=== PATIENT | female | born 1995 | race Two or more races ===

== ENCOUNTER 2021-09-25 15:06 | Observation (INO) | payer SELFPAY ==
[~2021-09-25] VITALS: Ht 159.5 cm; Wt 67.4 kg
--- NOTE | 2021-09-25 17:11 | PHYS DOC ---
Past Medical History Past Medical History: No Pertinent History (LAM VILLALPANDO APRN) Past Surgical History: No Surgical History (LAM VILLALPANDO APRN) Smoking Status: Never Smoker Alcohol Use: None Drug Use: None (LAM VILLALPANDO APRN) General Adult EDM: Chief Complaint: VAGINAL BLEEDING HPI: HPI: Patient is a 25-year-old female that presents today with vaginal bleeding with a positive test. Patient states that over the last 2 weeks she has had vaginal bleeding with a positive test at home. She states that she was seen in the PROMOTIONAL MARKETING AGENT's office on Sunday had some blood drawn and continues to wait for results from that blood test. But she states today that her pain has gotten worse and she is here for evaluation. She states that over the last 24 hours she is going through 3 pads, and has not had any clot passage. Patient is a 2 para 1. Patient is Indonesian-speaking only and interpretive services was used for this HPI. (LAM VILLALPANDO APRN) Review of Systems: Review of Systems: Constitutional: Denies fever or chills. [] Eyes: Denies change in visual acuity. [] HENT: Denies nasal congestion or sore throat. [] Respiratory: Denies cough or shortness of breath. [] Cardiovascular: Denies chest pain or edema. [] GI: Denies abdominal pain, nausea, vomiting, bloody stools or diarrhea. [] BRIDGE CRANE OPERATOR: Lower abdominal cramping, and vaginal bleeding Musculoskeletal: Denies back pain or joint pain. [] Integument: Denies rash. [] Neurologic: Denies headache, focal weakness or sensory changes. [] Endocrine: Denies polyuria or polydipsia. [] Lymphatic: Denies swollen glands. [] Psychiatric: Denies depression or anxiety. [] (LAM VILLALPANDO APRN) Heart Score: C/O Chest Pain: N/A Risk Factors: Risk Factors: DM, Current or recent (<one month) smoker, HTN, HLP, family history of CAD, obesity. Risk Scores: Score 0 - 3: 2.5% MACE over next 6 weeks - Discharge Home Score 4 - 6: 20.3% MACE over next 6 weeks - Admit for Clinical Observation Score 7 - 10: 72.7% MACE over next 6 weeks - Early Invasive Strategies (LAM VILLALPANDO CHAIRMAN AND CEO) Physical Exam: PE: Constitutional: Well developed, well nourished, no acute distress, non-toxic appearance. [] HENT: Normocephalic, atraumatic, bilateral external ears normal, oropharynx moist, no oral exudates, nose normal. [] Eyes: PERRLA, EOMI, conjunctiva normal, no discharge. [] Neck: Normal range of motion, no tenderness, supple, no stridor. [] Cardiovascular:Heart rate regular rhythm, no murmur [] Lungs & Thorax: Bilateral breath sounds clear to auscultation [] Abdomen: Bowel sounds normal, soft, no tenderness, no masses, no pulsatile masses. [] Skin: Warm, dry, no erythema, no rash. [] Back: No tenderness, no CVA tenderness. [] Extremities: No tenderness, no cyanosis, no clubbing, ROM intact, no edema. [] Neurologic: Alert and oriented X 3, normal motor function, normal sensory function, no focal deficits noted. [] Psychologic: Affect normal, judgement normal, mood normal. [] Pelvic Exam: External exam is normal and without rash, No CMT, OS is closed, scant amount of blood noted in the vaginal vault. Uterus tenderness noted with bimanual exam. (LAM VILLALPANDO CHAIRMAN AND CEO) Current Patient Data: Labs: Patient blood type is B+ Laboratory Tests Test 09/25/21 17:00 09/25/21 17:01 09/25/21 17:20 Urine Collection Type Unknown Urine Color Yellow Urine Clarity Clear Urine pH 5.5 Urine Specific Sisters 1.010 Urine Protein Negative mg/dL Urine Glucose (UA) Negative mg/dL Urine Ketones (Stick) Negative mg/dL Urine Blood Large Urine Nitrite Negative Urine Bilirubin Negative Urine Urobilinogen Dipstick 0.2 mg/dL Urine Leukocyte Esterase Negative Urine RBC 3-5 /HPF Urine WBC 1-4 /HPF Urine Squamous Epithelial Cells Many /LPF Urine Bacteria Few /HPF Urine Mucus Slight /LPF Bedside Urine HCG, Qualitative Borderline hcg level White Blood Count 11.9 x10^3/uL Red Blood Count 4.19 x10^6/uL Hemoglobin 12.4 g/dL Hematocrit 38.3 % Mean Corpuscular Volume 92 fL Mean Corpuscular Hemoglobin 30 pg Mean Corpuscular Hemoglobin Concent 32 g/dL Red Cell Distribution Width 13.2 % Platelet Count 269 x10^3/uL Neutrophils (%) (Auto) 83 % Lymphocytes (%) (Auto) 14 % Monocytes (%) (Auto) 3 % Eosinophils (%) (Auto) 0 % Basophils (%) (Auto) 0 % Neutrophils # (Auto) 9.8 x10^3/uL Lymphocytes # (Auto) 1.7 x10^3/uL Monocytes # (Auto) 0.3 x10^3/uL Eosinophils # (Auto) 0.0 x10^3/uL Basophils # (Auto) 0.0 x10^3/uL Maternal Serum HCG Beta Subunit 31 mIU/mL Serum Test, Qualitative Positive Vital Signs: Vital Signs Date Time Temp Pulse Resp B/P (MAP) Pulse Ox O2 Delivery O2 Flow Rate FiO2 09/25/21 18:24 76 18 103/59 (74) 100 Room Air 09/25/21 17:15 98.1 95 20 115/61 (79) 100 Room Air 98.1 (LAM VILLALPANDO APRN) EKG: EKG: [] (LAM VILLALPANDO APRN) Radiology/Procedures: Radiology/Procedures: REASON: VAGINAL BLEEDING PROCEDURE: OB <14 WKS W/TV EXAMINATION: US OB <14 WKS +TV, 09/25/2021 6:09 PM CLINICAL INDICATION: , vaginal bleeding. TECHNIQUE: Grayscale, color and spectral Doppler ultrasound images of the pelvis via first trimester OB protocol. COMPARISON: None FINDINGS: The uterus measures 7.5 x 3.5 x 2.9 cm and is normal in appearance. There is no intrauterine gestational sac. The endometrial stripe measures 3 mm. The right ovary is normal in appearance measuring 2.9 x 1.8 x 1.7 cm and has normal blood flow. The left ovary measures 3.1 x 2.2 x 2.2 cm and has intact blood flow. There is a 1.8 cm dominant follicle in the left ovary. There is a heterogeneous isoechoic avascular mass around the left ovary, measuring 6.3 x 3.8 x 3.1 cm. There is a large volume of complex fluid in the pelvis. IMPRESSION: Sonographic findings suspicious for ruptured ectopic with large amount of complex fluid in the pelvis and a heterogeneous mass in the left adnexa, likely a hematoma. Recommend PROMOTIONAL MARKETING AGENT consultation. FOR INTERNAL CODING PURPOSES Critical result: Findings discussed with LAM VILLALPANDO APRN at 09/25/2021 7:01 PM. RESULT CODE: (C) [] (LAM VILLALPANDO APRN) Course & Med Decision Making: Course & Med Decision Making Pertinent Labs and Imaging studies reviewed. (See chart for details) 1899 radiologist called regarding ultrasound results she states that there is a left mass a possible ruptured ectopic or ovarian cyst noted over there she recommended that PROMOTIONAL MARKETING AGENT be consulted on this patient. Dr. Fallon from PROMOT[facility] MARKETING [facility] has been paged. Patient has been updated on the results and is verbally understanding of this. [address] Fallon from [facility]OTION[facility] MARKETING [facility]ENT service he reviewed ultrasound results and recommends that the patient follow-up in his office tomorrow morning for repeat exam and blood work. Patient informed that she will need to follow-up with Dr. Fallon in the a.m., patient verbalized understanding of this through interpretive services. (LAM VILLALPANDO APRN) Course & Med Decision Making Attending addendum: Patient was discharged by the [facility] without my knowledge. I reviewed the history, labs, and imaging. The findings are heavily concerning for a ruptured ectopic with significant pelvic free fluid. I called Dr. Fallon and expressed my discomfort with outpatient follow up and he agreed to admission to his service. I called the patient back to the hospital and arranged for a direct admission with the nursing boatbuilder supervisor. A follow up cbc was ordered for AM labs. [id number] (NIMESH MOMIN MD) Jefferyon Disclaimer: Dragon Disclaimer: This electronic medical record was generated, in whole or in part, using a voice recognition dictation system. (LAM VILLALPANDO APRN) Departure Departure Impression: Primary Impression: Encounter for assessment for suspected ectopic Disposition: ADMITTED INPATIENT Condition: STABLE Referrals: HARRIS FALLON MD Patient Instructions: Miscarriage, [id number] Additional Instructions: Increase by mouth fluids, pain special attention to eat well-balanced meals Tylenol and/or ibuprofen as needed for pain Follow-up with Dr. Fallon who is listed in the discharge instructions tomorrow a.m. call in the morning to get an appointment same day. He is aware of you as a patient. Return to the emergency department if your bleeding becomes worse or you experience more clots. LAM VILLALPANDO APRN Sep 25, 2021 17:11 NIMESH MOMIN MD Sep 26, 2021 07:41
[2021-09-25 17:14] LABS: BILIRUBIN,URINE NEGATIVE (NEG); CLARITY,URINE CLEAR; COLOR,URINE YELLOW; NITRITE,URINE NEGATIVE (NEG); PH,URINE 5.5 (<5.0-8.0); PROTEIN,URINE NEGATIVE (NEG-TRACE); UROBILINOGEN,URINE 0.2 mg/dL (0.2 mg/dL)
[2021-09-25 17:39] LABS: BACTERIA,URINE FEW /HPF (0-FEW)
[2021-09-25 17:50] LABS: PREG TEST PT QUAL POSITIVE (NEG)
[2021-09-25 17:53] LABS: BASO % 0 % (0-3); EOS % 0 % (0-3); HEMATOCRIT 38.3 % (36.0-47.0); HEMOGLOBIN 12.4 g/dL (12.0-15.5); LYMPH # 1.7 x10^3/uL (1.0-4.8); LYMPH % 14 % (24-48); MEAN CORPUSCULAR HEMOGLOBIN 30 pg (25-35); MEAN CORPUSCULAR HGB CONC 32 g/dL (31-37); MEAN CORPUSCULAR VOLUME 92 fL (79-100); MONO # 0.3 x10^3/uL (0.0-1.1); MONO % 3 % (0-9); NEUT # 9.8 x10^3/uL (1.8-7.7); NEUT % 83 % (31-73); PLATELET COUNT 269 x10^3/uL (140-400); RED BLOOD COUNT 4.19 x10^6/uL (3.50-5.40); RED CELL DISTRIBUTION WIDTH 13.2 % (11.5-14.5); WHITE BLOOD COUNT 11.9 x10^3/uL (4.0-11.0)
--- NOTE | 2021-09-25 19:10 | RAD ---
EXAMINATION: US OB <14 WKS +TV, 09/25/2021 6:09 PM CLINICAL INDICATION: , vaginal bleeding. TECHNIQUE: Grayscale, color and spectral Doppler ultrasound images of the pelvis via first trimester OB protocol. COMPARISON: None FINDINGS: The uterus measures 7.5 x 3.5 x 2.9 cm and is normal in appearance. There is no intrauterine gestatio nal sac. The endometrial stripe measures 3 mm. The right ovary is normal in appearance measuring 2.9 x 1.8 x 1.7 cm and has normal blood flow. The left ovary measures 3.1 x 2.2 x 2.2 cm and has intact blood flow. There is a 1.8 cm dominant foll icle in the left ovary. There is a heterogeneous isoechoic avascular mass around the left ovary, norris uring 6.3 x 3.8 x 3.1 cm. There is a large volume of complex fluid in the pelvis. IMPRESSION: Sonographic findings suspicious for ruptured ectopic with large amount of compl ex fluid in the pelvis and a heterogeneous mass in the left adnexa, likely a hematoma. Recommend OB/G YN consultation. FOR INTERNAL CODING PURPOSES Critical result: Findings discussed with LAM VILLALPANDO APRN at 09/25/2021 7:01 PM. RESULT CODE: (C) Electronically signed by: Mindi Johnson MD (09/25/2021 7:08 PM) [id number]
[2021-09-25 21:00] VITALS: BP 99/54
[2021-09-25] MEDS ORDERED: 0.9 % SODIUM CHLORIDE 10 ML DISP.SYRIN. IV PRN (21:15)
[2021-09-26 01:18] VITALS: BP 95/50
--- NOTE | 2021-09-26 06:13 | PDOC1 ---
PLATING OPERATOR H&P Date of Admission: Date of Admission: Sep 25, 2021 at 21:13 History of Present Illness: The pt is a 25y with LMP of 09/12/21 who presented to the ER with abd pain and bleeding. The pt states that she came to the ER due to lower abd and back pain. The pt was asked about the ER report that her main concern was bleeding. She states that she was concerned due to her heavy bleeding, but also the pain. The pt states that she performed a test at a clinic last wk. They were to call her with the results this wk. When the pt presented to the ER labs revealed a Hgb of 12.4 and a quant of 31. The performed an u/s that revealed the following: FINDINGS: The uterus measures 7.5 x 3.5 x 2.9 cm and is normal in appearance. There is no intrauterine gestational sac. The endometrial stripe measures 3 mm. The right ovary is normal in appearance measuring 2.9 x 1.8 x 1.7 cm and has normal blood flow. The left ovary measures 3.1 x 2.2 x 2.2 cm and has intact blood flow. There is a 1.8 cm dominant follicle in the left ovary. There is a heterogeneous isoechoic avascular mass around the left ovary, measuring 6.3 x 3.8 x 3.1 cm. There is a large volume of complex fluid in the pelvis. IMPRESSION: Sonographic findings suspicious for ruptured ectopic with large amount of complex fluid in the pelvis and a heterogeneous mass in the left adnexa, likely a hematoma. Recommend PLATING OPERATOR consultation. Discussed the findings with the pt. Explained that typically an ectopic presented with more pain, a low Hgb, and much higher quant. Explained that all those did not have to be the case but it made it more likely. Explained that the ddx would also include a hemorrhagic cyst with a missed AB. Discussed r epeating labs and potentially performing a Dx L/S. The pt states that now she only has pain when she moves mostly on the left. PMH: Denies PSH: Denies Meds: None All: NKDA OBHx: TSVD x 1 Mapping Analyst: LMP 09/12/21 17y / regular SH: no tob, no EtOH FH: noncontributory Allergies: Coded Allergies: No Known Drug Allergies (Unverified , 09/25/21) Physical Exam: Vital Signs: Vital Signs Date Time Temp Pulse Resp B/P (MAP) Pulse Ox O2 Delivery O2 Flow Rate FiO2 09/26/21 01:18 97.5 80 95/50 (65) 99 Room Air 97.5 09/25/21 21:00 18 PE: GENERAL: No apparent distress. Alert and oriented. HEENT: Head normocephalic, atraumatic. NECK: Supple LUNGS: Clear to auscultation. HEART: RRR, S1, S2 present, pulses intact ABDOMEN: Soft, positive bowel sounds. Some mild tenderness in the LLQ. No rebound or guarding. EXTREMITIES: No cyanosis or edema. NEUROLOGIC: Normal speech, normal tone PSYCHIATRIC: Normal affect, normal mood. SKIN: No ulceration. Labs: Laboratory Tests Test 09/25/21 17:00 09/25/21 17:01 09/25/21 17:20 Urine Collection Type Unknown Urine Color Yellow Urine Clarity Clear Urine pH 5.5 (<5.0-8.0) Urine Specific [place] 1.010 (1.000-1.030) Urine Protein Negative mg/dL (NEG-TRACE) Urine Glucose (UA) Negative mg/dL (NEG) Urine Ketones (Stick) Negative mg/dL (NEG) Urine Blood Large (NEG) Urine Nitrite Negative (NEG) Urine Bilirubin Negative (NEG) Urine Urobilinogen Dipstick 0.2 mg/dL (0.2 mg/dL) Urine Leukocyte Esterase Negative (NEG) Urine RBC 3-5 /HPF (0-2) Urine WBC 1-4 /HPF (0-4) Urine Squamous Epithelial Cells Many /LPF Urine Bacteria Few /HPF (0-FEW) Urine Mucus Slight /LPF POC Urine HCG, Qualitative Borderline hcg level White Blood Count 11.9 x10^3/uL (4.0-11.0) H Red Blood Count 4.19 x10^6/uL (3.50-5.40) Hemoglobin 12.4 g/dL (12.0-15.5) Hematocrit 38.3 % (36.0-47.0) Mean Corpuscular Volume 92 fL (79-100) Mean Corpuscular Hemoglobin 30 pg (25-35) Mean Corpuscular Hemoglobin Concent 32 g/dL (31-37) Red Cell Distribution Width 13.2 % (11.5-14.5) Platelet Count 269 x10^3/uL (140-400) Neutrophils (%) (Auto) 83 % (31-73) H Lymphocytes (%) (Auto) 14 % (24-48) L Monocytes (%) (Auto) 3 % (0-9) Eosinophils (%) (Auto) 0 % (0-3) Basophils (%) (Auto) 0 % (0-3) Neutrophils # (Auto) 9.8 x10^3/uL (1.8-7.7) H Lymphocytes # (Auto) 1.7 x10^3/uL (1.0-4.8) Monocytes # (Auto) 0.3 x10^3/uL (0.0-1.1) Eosinophils # (Auto) 0.0 x10^3/uL (0.0-0.7) Basophils # (Auto) 0.0 x10^3/uL (0.0-0.2) Maternal Serum HCG Beta Subunit 31 mIU/mL (0-5) H Serum Test, Qualitative Positive (NEG) Laboratory Tests 09/25/21 17:20 Laboratory Tests 09/25/21 17:20 Assessment & Plan: 25y with LMP of 09/12/21 with LLQ pain and VB 1.) LLQ pain concerns of ectopic . Hcg 31 will repeat this am. Also will repeat Hgb. U/s findings concerning for ectopic , but ddx would also include hemorrhagic cyst. Since difficult to determine will take pt to OR for Dx L/S. 2.) VB possible AB 3.) Blood type B pos HARRIS FALLON MD Sep 26, 2021 06:13
[2021-09-26 06:59] VITALS: BP 95/52
[2021-09-26 07:12] LABS: BASO % 0 % (0-3); EOS # 0.1 x10^3/uL (0.0-0.7); EOS % 2 % (0-3); HEMATOCRIT 34.7 % (36.0-47.0); HEMOGLOBIN 11.6 g/dL (12.0-15.5); LYMPH # 2.3 x10^3/uL (1.0-4.8); LYMPH % 37 % (24-48); MEAN CORPUSCULAR HEMOGLOBIN 30 pg (25-35); MEAN CORPUSCULAR HGB CONC 33 g/dL (31-37); MEAN CORPUSCULAR VOLUME 91 fL (79-100); MONO # 0.4 x10^3/uL (0.0-1.1); MONO % 6 % (0-9); NEUT # 3.5 x10^3/uL (1.8-7.7); NEUT % 55 % (31-73); PLATELET COUNT 238 x10^3/uL (140-400); RED BLOOD COUNT 3.81 x10^6/uL (3.50-5.40); RED CELL DISTRIBUTION WIDTH 13.4 % (11.5-14.5); WHITE BLOOD COUNT 6.3 x10^3/uL (4.0-11.0)
[2021-09-26 09:30] VITALS: BP 93/53
[2021-09-26] MEDS ORDERED: SCOPOLAMINE 1.5MG PATCH. TD ONE (12:00)
[2021-09-26] MEDS ORDERED: fentaNYL PF VIAL 100 MCG/2 ML VIAL ONE (12:01)
[2021-09-26] MEDS ORDERED: PROPOFOL 10 MG/ML (20ML) VIAL. IV ONE (12:01)
[2021-09-26] MEDS ORDERED: ROCURONIUM 50 MG/5 ML VIAL. ONE (12:01)
[2021-09-26] MEDS ORDERED: GLYCOPYRROLATE 1 MG/5 ML VIAL. ONE (12:02)
[2021-09-26] MEDS ORDERED: DEXAMETHASONE SOD PHOS 4 MG/ML VIAL ONE (12:02)
[2021-09-26] MEDS ORDERED: KETOROLAC 30 MG/ML VIAL. ONE (12:02)
[2021-09-26] MEDS ORDERED: NEOSTIGMINE METHYLSULFATE 5 MG/5 ML SYRINGE. ONE (12:02)
[2021-09-26] MEDS ORDERED: ONDANSETRON PF 4 MG/2 ML VIAL. ONE (12:03)
[2021-09-26] MEDS ORDERED: FAMOTIDINE 20 MG/2 ML VIAL ONE (12:05)
[2021-09-26] MEDS ORDERED: MIDAZOLAM HCL/PF 2 MG/2 ML VIAL. ONE (12:06)
[2021-09-26] MEDS ORDERED: DEXMEDETOMIDINE 200 MCG/2 ML VIAL. IV ONE (12:30)
[2021-09-26] MEDS ORDERED: PHENYLEPHRINE in 0.9% NACL PF 1 MG/10 ML SYRINGE. IV ONE (13:00)
[2021-09-26] MEDS ORDERED: SEVOFLURANE 31 TO 60 MINUTES. IH ONE (13:37)
[2021-09-26] MEDS ORDERED: PHENYLEPHRINE 10 MG/ML VIAL. ONE (14:38)
[2021-09-26] MEDS ORDERED: MORPHINE SULFATE 2 MG/ML INJ. ONE (14:49)
[2021-09-26 15:30] VITALS: BP 92/51
[2021-09-26] MEDS ORDERED: MORPHINE SULFATE 2 MG/ML INJ. IVP PRN (15:30)
[2021-09-26] MEDS ORDERED: IV RINGERS,LACTATED 1000ML 1,000 ML IV SCH (15:30)
--- NOTE | 2021-09-26 15:44 | PDOC4 ---
OPERATIVE NOTE: PreOp Dx: 1.) LLQ pain, 2.) VB, 3.) Concerns of rupture left ectopic PostOp Dx: 1.) LLQ pain, 2.) VB, 3.) left ectopic appears to be intact Procedure: Dx L/S, left salpingectomy Surgeon: Cristy Fallon Anesthesia: GETA EBL: 50 cc Fluids: 750 cc UOP: 250 cc Findings: about 200 cc of blood in pelvis, left ectopic (appears still intact) Complications: None HARRIS FALLON MD Sep 26, 2021 15:44
[2021-09-26] MEDS ORDERED: OXYC1TAB15 PO (16:23)
[2021-09-26] MEDS ORDERED: IBUP-1060 PO (16:23)
[2021-09-26 17:45] VITALS: BP 92/50
--- NOTE | 2021-09-26 23:09 | OP ---
DATE OF SURGERY: 09/26/2021 PREOPERATIVE DIAGNOSES: 1. Left lower quadrant pain. 2. Vaginal bleeding. 3. Concerns of ruptured left ectopic . POSTOPERATIVE DIAGNOSES: 1. Left lower quadrant pain. 2. Vaginal bleeding. 3. Left ectopic appears to be intact. PROCEDURES: Diagnostic laparoscopy with left salpingectomy. SURGEON: Nick Owens MD ANESTHESIA: General endotracheal intubation. ESTIMATED BLOOD LOSS: 50 mL. FLUIDS: 750 mL. URINE OUTPUT: 250 mL. FINDINGS: A 200 mL of blood in the pelvis, left ectopic appears to be intact. COMPLICATIONS: None. DESCRIPTION OF PROCEDURE: The patient was taken to the operating room, where general endotracheal intubation was obtained without difficulty. The patient was prepped and draped in normal sterile fashion. A sponge stick was placed in the patient's vagina to manipulate the uterus. Attention was then turned to the abdomen, where a 5 mm skin incision was made in her infraumbilical fold. A 5 mm trocar was then placed directly into the abdomen. Intra-abdominal placement was confirmed with the laparoscope. At that point, the abdomen was insufflated to 15 mmHg. Visualization of the pelvis revealed approximately 200 mL of blood in the pelvis. A secondary trocar was then placed on the left. Examination of the pelvis also revealed what appeared to be an enlarged left ectopic in the tube. At that point, a second trocar was then placed on the left approximately two-thirds between the ischial spine and the umbilicus by first making a 5 mm skin incision and then placing the 5 mm trocar under direct visualization of the laparoscope. At that point, the third trocar was then placed approximately two-thirds between the ischial spine and the umbilicus first by making a 5 mm skin incision and then placing a 5 mm trocar under direct visualization of the laparoscope. At that point, the ectopic was visualized. The left tube was then grasped since the ectopic was less than a centimeter away from the fimbria. Examination of the ectopic did not see any signs of rupture. At that point, the tube was from the ovary with the Harmonic scalpel. Once the ectopic was from the ovary and uterus, the ectopic was placed in the anterior cul-de-sac. At that point, the 5 mm trocar in the umbilicus was removed and the 5 mm skin incision was extended to 10 mm to allow for a 10 mm trocar to be placed. Once this had been done, the Endo Catch was then placed through the trochar and the ectopic was then placed in the Endo Catch bag and the bag was then removed with the ectopic in place. At that point, the pelvis was copiously irrigated and cleared of all clots and debris. Good hemostasis was noted. At that point, the laparoscopic instruments were removed. The abdomen was de-insufflated. A 10 mm fascial incision was then closed with 0 Vicryl in a running fashion. The skin was then closed with 3-0 Monocryl in a subcuticular manner. Sponges, laps and needles were correct x2. The patient was taken to recovery room in stable condition. RICHARD DR: Ceasar TID: [id number] MTDD
--- NOTE | 2021-09-29 16:08 | PATHOLOGY ---
[facility] Accession Number: [id number] . 01 Material submitted: . fallopian tube - LEFT FALLOPIAN TUBE ECTOPIC . Modifiers: left . 01 Clinical history: . ECTOPIC DX LAPAROSCOPY FOR ECTOPIC . 02 Diagnosis: Fallopian tube, left salpingectomy: - Ectopic tubal . - Hematosalpinx. (JPM:tonio; 09/29/2021) QMS 09/29/2021 1347 Local . 02 Comment: There appears to be a focal area of rupture. . 02 Electronically signed: . Ryan Calhoun MD, Pathologist NPI- [id number] . 01 Gross description: . The specimen is received in formalin, labeled "Evelyn David, ectopic". The site is verified on the problem specimen form as, "left fallopian tube ectopic ". Received is a fimbriated fallopian tube measuring 5.5 cm in length and ranges in diameter from 0.8 to 2.5 cm. The serosal surface is pink-sawant with an area of perforation measuring 1.0 cm, located 1.3 cm from the fimbriated aspect. Sectioning reveals a pinpoint lumen at the fimbriated aspect, becoming dilated and congested, and filled with blood coagulum. or embryonic tissue is not grossly identified. The specimen is submitted representatively in cassettes A1 through A4, with the area of perforation submitted in cassette A1. (CAA; 09/28/2021) QAC/QAC 09/28/2021 0851 Local . 02 Pathologist provided ICD-10: O00.90, N83.6 . 02 CPT . 187191 Specimen Comment: A courtesy copy of this report has been sent to [phone] Specimen Comment: Report sent to Performed at: 01 [facility] [address], [place], [place] [id number] MD Joshua Mejia MD Phone: [phone] Performed at: 02 [facility] [address] [place], [place] [id number] MD Ryan Calhoun MD Phone: [phone]
== END 2021-09-26 18:05 | disposition home or self-care (01) ==
LOC: ER 15:06 → 3 SO LND 19:25 → ER 19:25 → 3 SO LND 21:13 → INTOOBSV 21:13
PROVIDERS: ADMIT Obstetrics & Gynecology; ATTEND Obstetrics & Gynecology
DX: O00.109 Unspecified tubal pregnancy without intrauterine pregnancy (principal); O46.90 Antepartum hemorrhage, unspecified, unspecified trimester; N93.9 Abnormal uterine and vaginal bleeding, unspecified; R10.32 Left lower quadrant pain; Z3A.00 Weeks of gestation of pregnancy not specified
CPT/HCPCS: 36415; 59151; 76801; 76817; 81001; 81025; 84702; 84703; 85025; 86850; 86900; 86901; 99284; A4364; A4930; A6219; G0378; J1100; J1885; J2250; J2270; J2370; J2405; J2704; J2710; J3010; J3490; A4452; A4657; G0379; 99285-25